=== PATIENT | male | born 1965 | race Caucasian/White ===

== ENCOUNTER 2019-11-18 03:25 | Emergency (ER) | payer SELFPAY ==
[~2019-11-18] VITALS: Ht 185.4 cm; Wt 70.3 kg
[2019-11-18 03:33] VITALS: BP 120/60
[2019-11-18] MEDS ORDERED: cefTRIAXone SOD 1,000 MG VL IM ONE (04:45)
[2019-11-18] MEDS ORDERED: KETOROLAC TROMETH 60MG/2ML VIAL IM ONE (04:45)
== END 2019-11-18 05:42 | disposition home or self-care (01) ==
LOC: EDBD 03:25 → ER 03:25
DX: L03.113 Cellulitis of right upper limb (principal)
CPT/HCPCS: 10060; 96372; 99284; J0696; J1885

== ENCOUNTER 2019-11-19 00:09 | Emergency (ER) | payer SELFPAY ==
[~2019-11-19] VITALS: Ht 170.2 cm; Wt 68.0 kg
[2019-11-19 00:18] VITALS: BP 122/86
== END 2019-11-19 03:47 | disposition left against medical advice (07) ==
LOC: EDBD 00:09 → ER 00:13
DX: M79.89 Other specified soft tissue disorders (principal); Z53.21 Procedure and treatment not carried out due to patient leaving prior to being seen by health care provider